=== PATIENT | female | born 1960 | race Caucasian/White ===

== ENCOUNTER 2016-12-24 10:22 | Day surgery (SDC) | payer OTHER ==
[~2016-12-24] VITALS: Ht 167.6 cm; Wt 97.0 kg
[~2016-12-24 10:22] MED LIST: LACTATED RINGERS 1,000 ML IV SCH; SODIUM CHLORIDE FLUSH 3 ML SYR IV PRN; ceFAZolin 2,000 MG in SODIUM CHLORIDE VIAL (PF) 20 ML IV ONE
[2016-12-24 10:26] VITALS: BP 122/85
[2016-12-24] MEDS ORDERED: ceFAZolin 2,000 MG in SODIUM CHLORIDE VIAL (PF) 20 ML IV ONE (11:10)
[2016-12-24 11:11] LABS: MEAN CORPUSCULAR HEMOGLOBIN 28.9 PG (26.0-34.0); MEAN CORPUSCULAR HGB CONC 33.6 g/dL (31.0-37.0); MEAN CORPUSCULAR VOLUME 86 FL (80-100); MEAN PLATELET VOLUME 10.8 FL (6.0-9.5); PLATELET COUNT 300 10^3uL (150-450); WHITE BLOOD COUNT 5.49 10^3uL (4.0-11.0)
[2016-12-24 11:14] LABS: BAND NEUTROPHILS % 0 % (0-6); EOSINOPHILS % 3 % (0-4); LYMPHOCYTES # 1.9 #; MONOCYTES # 0.9 #; MONOCYTES % 17 % (3-11); RBC MORPH NORMAL (NORMAL); SEGMENTED NEUTROPHILS % 44 % (51-67); TOTAL CELLS COUNTED 100
[2016-12-24 11:27] LABS: BILIRUBIN,URINE Negative (Negative); CLARITY,URINE Clear; COLOR,URINE Yellow; GLUCOSE, URINE (UA) Negative (Negative); LEUKOCYTE ESTERASE, URINE Negative (Negative); PH,URINE 5.5 (5.0 - 8.0); UROBILINOGEN,URINE 0.2 mg/dL (0.2-1.0)
[2016-12-24] MEDS ORDERED: DEXAMETHASONE 4 MG/ML (DECADRON) VIAL ONE (11:50)
[2016-12-24] MEDS ORDERED: POVIDONE IODINE 10% OINTMENT (BETADINE) 30 GM TUBE TOP ONE (11:50)
[2016-12-24] MEDS ORDERED: LIDOCAINE 2% (XYLOCAINE) 20 ML VIAL INJ ONE (12:04)
[2016-12-24] MEDS ORDERED: ROPIVACAINE 1% 10 MG/ML (NAROPIN) 20 ML AMPUL ONE (12:04)
[2016-12-24] MEDS ORDERED: MIDAZOLAM 2 MG/2 ML (VERSED) VIAL ONE (12:06)
[2016-12-24] MEDS ORDERED: ALFENTANIL 1,000 MCG/2 ML AMP IV ONE (12:06)
[2016-12-24] MEDS ORDERED: ceFAZolin 1000 MG (ANCEF) VIAL ONE (12:22)
[2016-12-24] MEDS ORDERED: PROPOFOL 40 ML IV ONE (12:29)
[2016-12-24 14:10] VITALS: BP 128/76
[2016-12-24 14:34] VITALS: BP 122/87
[2016-12-24 14:57] VITALS: BP 120/73
--- NOTE | 2016-12-24 15:02 | NUR ---
PATIENT O2 SAT 98-100% ON RA SINCE COMING BACK TO [facility]. REPORTED TO LESLIE KHAN CRNA. LESLIE OK TO LET PATIENT GO HOME. PATIENT INSTRUCTED TO USE CPAP TODAY ANY TIME SHE IS SLEEPING OR SITTING DOWN TO REST.
== END 2016-12-24 15:12 | disposition home or self-care (01) ==
LOC: ASC 10:22
PROVIDERS: ATTEND Podiatrist
DX: M20.12 Hallux valgus (acquired), left foot (principal); M20.5X2 Other deformities of toe(s) (acquired), left foot; I10 Essential (primary) hypertension; K21.9 Gastro-esophageal reflux disease without esophagitis; G47.30 Sleep apnea, unspecified; G47.33 Obstructive sleep apnea (adult) (pediatric); E66.9 Obesity, unspecified; Z68.34 Body mass index [BMI] 34.0-34.9, adult
CPT/HCPCS: 28299; 36415; 81003; 85007; 85027; C1713; J0690; J1100; J2001; J2250; J2795; J7120